=== PATIENT | male | born 1965 | race Caucasian/White ===

== ENCOUNTER 2017-11-19 10:27 | Emergency (ER) | payer OTHER ==
[2017-11-19] MEDS ORDERED: Acetaminophen/HYDROcodone 325-5 MG Tab PO ONE (12:18)
--- NOTE | 2017-11-19 12:24 | EDM.PDOC ---
ED HPI GENERAL MEDICAL PROBLEM - General Chief Complaint: Burn Stated Complaint: BURN TO LT ARM AND RT KNEE INJURY Time Seen by Provider: 11/19/17 11:07 Source of Information: Reports: Patient History Limitations: Reports: No Limitations - History of Present Illness INITIAL COMMENTS - FREE TEXT/NARRATIVE: Patient is a 52-year-old male who presents ED complaining of burn to the left forearm/wrist and right knee pain. Patient was working on a truck when a antifreeze hose popped off the radiator and sprayed him. Patient states the antifreeze sprayed up towards his face and the patient protected himself with his arms. Thus causing the burn. Patient fell off the truck landing on the right knee. States he twisted it and since has not been able to straighten it completely. Pain is worse with weightbearing. Denies any pain to his right hip, right upper leg, right lower leg, right ankle, right foot. Did not hit his head , no loss of consciousness, no neck or back pain. Left Lower Arm Pain Score (Numeric/FACES): 6 - Related Data Allergies Allergy/AdvReac Type Severity Reaction Status Date / Time No Known Allergies Allergy Verified 11/19/17 10:47 Home Meds: Home Meds Acetaminophen/HYDROcodone [[place] 325-5 MG] 1 tab PO Q6H PRN #12 tablet 11/19/17 [Rx] Social & Family History - Tobacco Use Smoking Status *Q: Current Every Day Smoker Years of Tobacco use: 30 Packs/Tins Daily: 0.5 - Caffeine Use Caffeine Use: Reports: None - Recreational Drug Use Recreational Drug Use: No ED ROS GENERAL - Review of Systems Review Of Systems: ROS reveals no pertinent complaints other than HPI. ED EXAM, BURN/SMOKE INHALATION - Physical Exam Exam: See Below Exam Limited By: No Limitations General Appearance: Alert, WD/WN, No Apparent Distress Eye Exam: Bilateral Eye: Normal Inspection Ears (Abbreviated): Hearing Grossly Normal Head: No Symptoms Neck: No Symptoms Respiratory: No Respiratory Distress, Lungs Clear, Normal Breath Sounds Cardiovascular: Normal Peripheral Pulses, Regular Rate, Rhythm, No Murmur Peripheral Pulses: 2+: Radial (L) Extremities: Other (Patient has approximately 3% partial-thickness burn to the left wrist along the medial aspect with few large blisters intact. Pain throughout the burn with palpation. No findings concerning for full-thickness burn. On examination of the right knee. Decreased range of motion secondary to pain. Unable to straighten the leg completely. Pain with palpation along the lateral, anterior, and medial aspect of the knee. No increased swelling. No bruising. No bony abnormalities. Limited testing secondary to pain.) Course - Vital Signs Last Recorded V/S: Last Vital Signs Temp 98.5 F 11/19/17 10:41 Pulse 77 11/19/17 10:41 Resp 12 11/19/17 10:41 BP 135/90 11/19/17 10:41 Pulse Ox 100 11/19/17 10:41 - Orders/Labs/Meds Orders: Active Orders 24 hr Category Date Time Status Knee Min 4V Rt [CR] Stat Exams 11/19/17 11:18 Taken DME for Discharge [COMM] Stat Oth 11/19/17 11:18 Ordered Meds: Medications Discontinued Medications Generic Name Dose Route Start Last Admin Trade Name Freq PRN Reason Stop Dose Admin Hydrocodone Bitart/Acetaminophen 1 tab 11/19/17 12:18 11/19/17 13:05 [place] 325-5 Mg PO 11/19/17 12:19 Not Given ONETIME ONE - Re-Assessments/Exams Free Text/Narrative Re-Assessment/Exam: Patient has approximately 3% partial-thickness burn to the left wrist. Large blisters present intact. Pain throughout the burn noted with examination. Instructed nursing staff to place bacitracin with nonadherent dressing to the affected area. He will require reevaluation tomorrow in the ED for wound check. In addition patient has pain to the right knee. Pain is to the lateral, anterior , and medial. He has increasing pain with straightening the leg. Pain is relieved with slight bend. No swelling, bony abnormalities present. No pain to the right hip, upper leg, lower leg, ankle, or foot. No sensory changes noted. X-ray of the right knee revealed no acute bony abnormalities. The knee immobilizer crutches provided to patient. Ordered norco 5-325mg PO for pain. He has a ride. Patient will be discharged with instructions as documented. The patient remained hemodynamically stable while under my care in the E.D. I discussed the concerning symptoms for which to return to the E.D. with the patient. The patient verbalized understanding. All questions were answered. Departure - Departure Time of Disposition: 12:24 Disposition: Home, Self-Care 01 Condition: Good Clinical Impression: Burn of wrist, left, second degree Qualifiers: Encounter type: initial encounter Qualified Code(s): T23.272A - Burn of second degree of left wrist, initial encounter Strain of knee and leg, right Qualifiers: Encounter type: initial encounter Qualified Code(s): S86.911A - Strain of unspecified muscle(s) and tendon(s) at lower leg level, right leg, initial encounter - Discharge Information Prescriptions: Acetaminophen/HYDROcodone [[place] 325-5 MG] 1 tab PO Q6H PRN #12 tablet PRN Reason: Pain (Severe 7-10) Instructions: Pain Medicine Instructions, [id number], Second-Degree Burn, Adult Referrals: PCP,None [Primary Care Provider] - Forms: ED Department Discharge, ED Return to Work/School Form Additional Instructions: Please return to the E.D. for dressing change and wound check. Keep dressing clean and dry. You are to be non weightbearing, toe touch only for balance. Use crutches to ambulate. Elevate when able to reduce any swelling and pain. Apply ice to the affected area 3 times a day, 30 minutes in duration, do not apply ice directly on the skin. Utilize Tylenol and ibuprofen as needed for pain. For severe pain take [place] one tab every [address] since receiving a sedative medication in the ED. Do not drive while taking the [place]. Follow-up up with occupational med provider for modification of job duties tomorrow. Return to the ED if you develop any new or worsening symptoms. - My Orders Last 24 Hours: My Active Orders 11/19/17 11:18 Knee Min 4V Rt [CR] Stat DME for Discharge [COMM] Stat - Assessment/Plan Last 24 Hours: My Active Orders 11/19/17 11:18 Knee Min 4V Rt [CR] Stat DME for Discharge [COMM] Stat
--- NOTE | 2017-11-20 10:15 | CR ---
Right knee: Four views of the right knee were obtained. Comparison: No previous study. Minimal joint effusion is seen. Mild medial joint space narrowing is seen. Lateral joint space is preserved. No fracture or other bony abnormality is appreciated. Impression: 1. Mild medial joint space narrowing and minimal joint effusion. Diagnostic code #2
== END 2017-11-19 13:00 | disposition home or self-care (01) ==
LOC: JD.ED 10:27
DX: T23.272A Burn of second degree of left wrist, initial encounter (principal); S86.911A Strain of unspecified muscle(s) and tendon(s) at lower leg level, right leg, initial encounter; F17.210 Nicotine dependence, cigarettes, uncomplicated; X50.1XXA Overexertion from prolonged static or awkward postures, initial encounter; X12.XXXA Contact with other hot fluids, initial encounter
CPT/HCPCS: 16000; 16020; 73564-26-RT; 73564-RT; 99283; 99284-25

== ENCOUNTER 2017-11-20 08:59 | Emergency (ER) | payer SELFPAY ==
--- NOTE | 2017-11-20 09:53 | EDM.PDOC ---
ED HPI GENERAL MEDICAL PROBLEM - General Chief Complaint: Upper Extremity Injury/Pain Stated Complaint: DRESSING CHANGE Time Seen by Provider: 11/20/17 10:00 Source of Information: Reports: Patient History Limitations: Reports: No Limitations - History of Present Illness INITIAL COMMENTS - FREE TEXT/NARRATIVE: 52-year-old gentleman who was injured in the workplace yesterday by hot radiator fluid is to the ED for burn review left forearm and wrist. Patient was seen by physician sales and marketing assistant Lamonte Acosta yesterday. Primary dressings were placed on the wounds. On review today he has extensive large blisters that are still intact on the entire lower aspect of his left forearm. This involves his wrist as well as the palmar creases of his hand. The trejo travel up to the antecubital fossa. There is a combination of first-degree trejo and extensive partial thickness second-degree trejo with blisters formation. The extensor surface of the forearm is uninjured. Patient reports pain is moderate. Onset: Sudden Onset Date: 11/19/17 (Initial trejo occurred in the workplace yesterday from hot radiator fluid from his truck.) Duration: Hour(s): (Seen approximately 24 hours post injury.) Location: Reports: Upper Extremity, Left Quality: Reports: Ache (And proximal hand) Severity: Moderate Improves with: Reports: None Worsens with: Reports: Other (Better when it's covered up.) Context: Reports: Trauma (Hot radiator fluid trejo with partial-thickness second -degree trejo to the volar aspect of his left forearm). 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: NSAIDS (Motrin.), Other (see below) (Also been using [place] one tablet every 6 hours which takes the edge off the pain) Left Lower Arm Pain Score (Numeric/FACES): 5 - Related Data Allergies Allergy/AdvReac Type Severity Reaction Status Date / Time No Known Allergies Allergy Verified 11/20/17 09:19 Home Meds: Home Meds Acetaminophen/HYDROcodone [[place] 325-5 MG] 1 tab PO Q6H PRN #12 tablet 11/19/17 [Rx] Social & Family History - Tobacco Use Smoking Status *Q: Never Smoker Second Hand Smoke Exposure: No - Caffeine Use Caffeine Use: Reports: None - Living Situation & Occupation Living situation: Reports: Single Occupation: Employed Review of Systems - Review of Systems Review Of Systems: See Below Constitutional: Reports: No Symptoms Eyes: Reports: No Symptoms Ears: Reports: No Symptoms Nose: Reports: No Symptoms Mouth/Throat: Reports: No Symptoms Respiratory: Reports: No Symptoms Cardiovascular: Reports: No Symptoms GI/Abdominal: Reports: No Symptoms Genitourinary: Reports: Other Musculoskeletal: Reports: Joint Pain (Urinary frequency with nocturia 2 usually knees hips and low back pain at times) Skin: Reports: Other (Being seen at present for trejo to his left volar forearm that occurred yesterday from hot radiator fluid.) Neurological: Reports: No Symptoms Psychiatric: Reports: No Symptoms ED EXAM, GENERAL - Physical Exam Exam: See Below Exam Limited By: No Limitations General Appearance: Alert, WD/WN, Mild Distress Eye Exam: Bilateral Eye: Normal Inspection Respiratory/Chest: No Respiratory Distress, Lungs Clear, Normal Breath Sounds, No Accessory Muscle Use Cardiovascular: Normal Peripheral Pulses, Regular Rate, Rhythm, No Edema, No Murmur Extremities: Other (Evaluation was primarily limited to his left forearm. His extensor surface of the forearm and hand are uninjured. Patient has very large multiple blisters involving the forearm involving the flexor crease and proximal palmar aspect of his left hand as well. The blisters are all intact at this time. They are going to [place] pop in the next day or so. He has mostly partial thickness second-degree trejo involving the volar aspect of the forearm nearly to the antecubital fossa. The trejo stop at the lateral edges of his forearm i.e. radial and ulnar midline.) Neurological: Alert, Oriented, CN II-XII Intact, Normal Cognition, Normal Gait Psychiatric: Normal Affect, Normal Mood Skin Exam: Warm, Dry, Intact, Normal Color, Other (First and multiple partial thickness second-degree trejo with large blisters volar aspect of the left forearm.) Course - Vital Signs Last Recorded V/S: Last Vital Signs Temp 37.1 C 11/20/17 10:37 Pulse 65 11/20/17 10:37 Resp 18 11/20/17 10:37 BP 141/94 H 11/20/17 10:37 Pulse Ox 100 11/20/17 10:37 - Orders/Labs/Meds Meds: Medications Discontinued Medications Generic Name Dose Route Start Last Admin Trade Name Ghanshyam PRN Reason Stop Dose Admin Silver Sulfadiazine 25 gm 11/20/17 10:19 11/20/17 10:25 Silvadene 1% Cream 400 Gm TOP 11/20/17 10:20 25 gm ONETIME ONE Administration - Radiology Interpretation Free Text/Narrative:: 52-year-old male presents to the ED for burn review. His initial trejo occurred yesterday from hot radiator fluid from his truck in the workplace. He has suffered extensive partial thickness second-degree trejo to the use volar aspect of his left forearm and proximal wrist and proximal palmar aspect of his hand. The blisters are markedly enlarged compared to yesterday. First-degree burn travels up to the antecubital fossa. The extensor surface of the hand wrist and forearm are not involved. Pain is tolerated at this time. Plan Silvadene and burn dressings to be carried out. Patient plans on driving back to [place] for definitive wound management. Otherwise I was going to arrange physiotherapy here for him after the blisters have popped and debrided Aquacel dressings will be a very good alternative to helping his trejo heal. No written to excuse him for the workplace for a minimum of 21 days as well as take this long for these trejo to heal. 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 Tetanus toxoid is up- to-date. Discussed case with physiotherapy and they will see him I believe in the ED today and is he is not sure when he will be traveling back to [place]. Departure - Departure Time of Disposition: 10:40 Disposition: Home, Self-Care 01 Condition: Fair Clinical Impression: Second degree burn of arm Qualifiers: Encounter type: subsequent encounter Upper extremity location: forearm Laterality: left Qualified Code(s): T22.212D - Burn of second degree of left forearm, subsequent encounter Burn of wrist, left, second degree Qualifiers: Encounter type: initial encounter Qualified Code(s): T23.272A - Burn of second degree of left wrist, initial encounter - Discharge Information *PRESCRIPTION DRUG MONITORING PROGRAM REVIEWED*: Not Applicable *COPY OF PRESCRIPTION DRUG MONITORING REPORT IN PATIENT MITA: Not Applicable Instructions: Burn Care, Adult, [id number], Burn Care, Adult Referrals: PCP,None [Primary Care Provider] - Forms: ED Department Discharge, ED Return to Work/School Form Additional Instructions: Evaluation in the emergency him today in regards to review of partial thickness second-degree trejo to the volar aspect of your right forearm and wrist. Large blisters have formed in multiple areas on the volar aspect of the forearm. These are going to pop on their own over the next 48 hours. Dressing will need to be changed if it becomes saturated with serous fluid which will drain from the burn wounds. His trejo are second degree partial thickness and will heal uneventfully on their own over the next 21 days. There will not be a need for surgery. However if you're going to travel back to [place] you need to follow- up with your personal physician first and then get a referral to physiotherapy will then manage her trejo until they're completely healed. Discussed is going take a minimum of 21 days for these trejo to heal adequately for you to return to your work. May use the hydrocodone tablets on a when necessary basis for the first couple of days and then Motrin 600 mg every 6 hours for pain relief. Of note she cannot take the hydrocodone tablets while you are driving a motor vehicle. Suggest dressing changes once daily for the first 3 days with Silvadene application and after that dressing changes daily for 2 more days and then Aquacel dressing ideally applied by physiotherapy which could be left on for as long as a week and then reviewed.
[2017-11-20] MEDS ORDERED: Silver Sulfadiazine 1% Crm 400 GM Jar TOP ONE (10:19)
== END 2017-11-20 10:44 | disposition home or self-care (01) ==
LOC: JD.ED 08:59
DX: T22.212A Burn of second degree of left forearm, initial encounter (principal); T23.272A Burn of second degree of left wrist, initial encounter
CPT/HCPCS: 16020; 99283; A9270